=== PATIENT | male | born 1950 | race Caucasian/White ===

== ENCOUNTER → 2025-01-12 | Outpatient (CLI) | payer OTHER ==
[~2025-01-12] VITALS: Ht 152.4 cm; Wt 124.7 kg
[2025-01-12] MEDS: REGADENOSON 0.4 MG/5 ML SYRG IV ONE ×2 (08:54→09:07)
--- NOTE | 2025-01-13 12:59 | DVHSR ---
APPROVED REPORT Exam: Nuclear Stress Test Indication: Chest pain, SOB BMI: 0 Medical History Medical History: HTN, Diabetes, Hyperlipidemia Allergies: No known drug allergies Stress Test Details Stress Test: Pharmacologic stress testing performed using 0.4 mg of regadenoson per 5 mL given IV ov er 10 seconds. HR Resting HR: 52 bpmMax Heart Rate (APMHR): 146.928739 bpm Max HR Achieved: 73 bpmTarget HR (85% APMHR): 124.357419 bpm % of APMHR: 50.00 Recovery HR: 65 bpm BP Resting BP: 149/77 mmHg Recovery BP: 142/73 mmHg ECG Resting ECG: Sinus Bradycardia Clinical Reason for Termination: Completed protocol Nurse Comments Recieved pt. from [facility]. A/Ox4 on RA. Connected to traffic monitor specialist, VS stable. PIV flushes well. Reviewed POC. Pt. verbalized understanding of procedure including risks and side ef fects, agrees for stress testing. Lexiscan stress test performed per protocol. [employer] administered Cardiolite. Pt. tolerated well . Pt. stable, no change on exam. VS returned to baseline. Transferred to [facility] via wheelchair w/ te ch. Stress ECG Conclusion lvef 57% mild to moderate anterior wall ischemia anterolateral wall ischemia NM EXAM: Myocardial Perfusion REST/STRESS Imaging Protocol: Rest Tc-99m/Stress Tc-99m 1 day Resting Data Rest SPECT myocardial perfusion imaging was performed in supine position 60 minutes following the int ravenous injection of 12.0 mCi of Tc-99m Sestamibi. Time of rest injection: 07:45 Date: 01/12/2025 Time of rest imagin:45 Date: 01/12/2025 Administration Route: IV Administration Site: Right AC Pharmacologic Stress Pharmacologic stress test was performed by injecting Regadenoson 0.4 mg IV push followed by the intra venous injection of 33.1 mCi of Tc-99m Sestamibi. Time of stress injection: 09:05 Date: 01/12/2025 Time of stress imagin:05 Date: 01/12/2025 Administration Route: IV Administration Site: Right AC Gated Stress SPECT was performed 60 minutes after stress injection. The images were gated to evaluate regional wall motion and calculate left ventricular ejection fracti on. Stress only was performed in the Supine position. Nuclear Conclusion lvef 57% mild to moderate anterior wall ischemia anterolateral wall ischemia
== END | disposition home or self-care (01) ==
LOC: XYW 07:06
PROVIDERS: ATTEND Specialist
DX: I25.9 Chronic ischemic heart disease, unspecified (principal); R00.1 Bradycardia, unspecified; R06.02 Shortness of breath; R07.9 Chest pain, unspecified; I10 Essential (primary) hypertension; E11.9 Type 2 diabetes mellitus without complications; E78.5 Hyperlipidemia, unspecified
CPT/HCPCS: 78452; 93017; A9500; J2785

== ENCOUNTER 2025-03-18 06:44 | Day surgery (SDC) | payer OTHER ==
[~2025-03-18] VITALS: Ht 180.3 cm; Wt 122.5 kg
[2025-03-18] VITALS (7 sets, daily range): BP systolic 101–114; BP diastolic 47–64; PULSE 43–48; RESP 9–17; TEMP 97.5; O2SAT 93–100
[~2025-03-18 06:44] MED LIST: AMLO1TAB22 PO; ASPI-543 PO; ATOR40TA52 PO; COEN100C15 PO; EMPA1TAB3 PO; ISO60SRT PO; ISOS120T8 PO; LEVO175T4 PO; LOSA-535 PO; METO25TA5 PO; OMEGCAP2 OR; [UNRECOGNIZED DRUG - CODE] PO
[2025-03-18] MEDS: IODIXANOL 320MG/ML 100ML BTL IV ONE ×2 (07:29→09:08)
[2025-03-18] MEDS: MIDAZOLAM HCL 2MG/2ML 2ml VIAL (1mg/ml) ONE (07:54)
[2025-03-18] MEDS: ANGIOMAX 250 MG VIAL IV ONE ×2 (07:54→09:21)
[2025-03-18] MEDS: fentaNYL CITRATE 100 MCG/2 ML VL ONE (07:54)
[2025-03-18] MEDS: SODIUM CHL 0.9% 50 ML ONE ×2 (07:55→09:21)
[2025-03-18] MEDS: LIDOCAINE 2%HCL (LOCAL ANESTH.) INJ 10ml MDV ONE (07:55)
[2025-03-18] MEDS: CLOPIDOGREL BISULFATE 75 MG TAB ONE (10:00)
--- NOTE | 2025-03-18 10:14 | DVHOP2 ---
Operative Report Procedures performed: Left heart catheterization and bilateral coronary angiography Bypass angiography PCI (drug-eluting stent deployment) of ostium of SVG to obtuse marginal Fluoroscopy guided access (right femoral artery) Moderate sedation lasting more than 45 minutes Diagnosis: Multivessel baseline coronary artery disease Patent POWELL to diffusely diseased LAD Patent SVG to LPDA Patent SVG to obtuse marginal (ostium of the SVG had 90% disease, status post PCI/drug-eluting stent deployment) LVEF of 60% with increased EDP Cardiac suggestion for management: Dual antiplatelet therapy (loaded with aspirin/Plavix) for at least 1 year High potency statin, beta blockers, ANY inhibitors versus ARB Optimized medical therapy Lifestyle and risk factor modifications Findings: LVEF: 60% LVEDP: 22 mm Hg There was no transaortic valve pressure gradient Left main: Left main was coming off the left sinus of Valsalva. There was no angiographic evidence of disease in left main. LAD: LAD was coming off the left main. LAD was TECHNOLOGY ADMINISTRATOR at its proximal section. LAD was nourished via a patent POWELL. LAD itself was severely diffusely diseased. LCX: LCX was coming off the left main. It was the dominant vessel and provided LPDA. OM1 was a small-caliber vessel with proximal disease. OM2 was a medium- sized vessel and was TECHNOLOGY ADMINISTRATOR at its ostium (OM2 was nourished via patent SVG). OM3 was small caliber vessel. LPDA was TECHNOLOGY ADMINISTRATOR at its proximal section. LPDA itself was nourished via patent SVG. RCA: RCA was coming off the right sinus of Valsalva. It was a small-caliber/small-sized vessel. It was nondominant. It had sequential disease in its proximal section up to 80%. POWELL: POWELL was patent with no significant disease and was attached to LAD. SVG to obtuse marginal was patent. It had 90% ostial disease. Other portions of SVG had mild diffuse disease. PCI (drug-eluting stent deployment) of the ostium of the SVG was performed SVG to PDA was patent with up to moderate disease in its mid section. Presentation: Patient is a 74-year-old gentleman who presented to the office with occasional dyspnea on exertion and chest discomfort. Past medical history includes coronary artery disease and status post bypass surgery in 2007. Other comorbidities included diabetes mellitus, hypertension, hypothyroidism, prostate cancer and status post radiation therapy. His EKG shows right bundle branch block. Echocardiogram of July 2024 revealed ejection fraction of 60-65%, mild concentric left ventricular hypertrophy, mild biatrial enlargement, aortic root of 4 cm. Right ventricular systolic pressure was less than 35 mm Hg. Nuclear stress test of January 2025 was abnormal and the patient was sent for cardiac catheterization. Procedure: After obtaining informed consent, the patient was brought to the mine laborer. He was prepped and draped in sterile fashion. Right femoral artery was used for access site. 1 mg of Versed and 50 mcg of fentanyl were used for moderate sedation (lasting more than 45 minutes). Using micropuncture and with Seldinger technique and under ultrasound guidance, the right femoral artery was accessed. After angiographically proving a good access point, the micropuncture sheath was exchanged over a wire to a 6 Bangladeshi femoral sheath. A 6 Bangladeshi JL4 diagnostic catheter was used to perform left coronary angiography. A 6 Bangladeshi JR4 diagnostic catheter was used to perform right coronary angiography, SVG angiography to PDA and POWELL angiography. A 6 Bangladeshi LCB diagnostic catheter was used to perform SVG angiography to obtuse marginal. A 6 Bangladeshi multipurpose diagnostic catheter was also used to perform further imaging of SVG to PDA. Six Bangladeshi pigtail catheter was used to perform left heart catheterization. We did recognize the disease in the ostium of SVG to obtuse marginal and decision was made to proceed with intervention. Patient was started on Angiomax. A 6 Bangladeshi LCB guiding catheter was used to access the SVG. Run-through wire was used to cross the lesion. A 2 5 x 15 compliant balloon was used for predilatation. At this point we decided to proceed with deploying a stent. A 2.75 x 18 Brayden, drug-eluting stent, was deployed across the lesion in the ostium of SVG. Repeat angiography revealed a well deployed stent. Prior to intervention, BARTOLO flow into the SVG/obtuse marginal was BARTOLO 3 flow. Post intubation, BARTOLO flow into the SVG/obtuse marginal remained BARTOLO 3 flow. Post intervention, remaining disease in ostium of SVT was 0%. It is of note that we did special attention to the ostium of SVG to PDA. The images obtained by multipurpose catheter questioned ostium disease. The images obtained by JR4 diagnostic catheter did not reveal any kind of obstructive lesion in the ostium of the vessel. We assessed that the multipurpose catheter itself was the reason for questionable lesions. It was deemed that there was no significant lesion in the ostium of the SVG and no intervention was necessary at this point. There was no dissection/hematoma/perforation. Patient tolerated procedure with no complication. Right femoral artery access site was managed by deploying an Angio-Seal device. Fluoroscopy time: 21.1 minutes contrast: 265 mL of Jeanaipaque SUMA ARCE MD Mar 18, 2025 10:14
--- NOTE | 2025-03-21 09:44 | ECG ---
[facility] Test Date: 2025-03-18 Test Time: 07:39:23 Pat Name: TAMARA SIMPSON Department: Room: Gender: M Director: : 1950 Requested By: SUMA ARCE Order Number: [id number] Reading MD: Korey Chawla Measurements Intervals [place] Rate: 46 P: 60 MA: 196 QRS: -42 QRSD: 146 T: -18 QT: 484 QTc: 423 Interpretive Statements Marked sinus bradycardia Left axis deviation Right bundle branch block Electronically Signed On 03-21-2025 13:24:27 PDT by Korey Chawla Please click the below link to view image of tracing.
== END 2025-03-18 12:05 | disposition home or self-care (01) ==
LOC: CATH 06:44
PROVIDERS: ATTEND Internal Medicine Cardiovascular Disease
DX: R94.39 Abnormal result of other cardiovascular function study (principal); I25.810 Atherosclerosis of coronary artery bypass graft(s) without angina pectoris; I25.82 Chronic total occlusion of coronary artery; I45.10 Unspecified right bundle-branch block; I10 Essential (primary) hypertension; E11.9 Type 2 diabetes mellitus without complications; E03.9 Hypothyroidism, unspecified; Z79.82 Long term (current) use of aspirin; Z79.84 Long term (current) use of oral hypoglycemic drugs; Z79.890 Hormone replacement therapy; Z79.899 Other long term (current) drug therapy; Z85.46 Personal history of malignant neoplasm of prostate; Z92.3 Personal history of irradiation; Z95.5 Presence of coronary angioplasty implant and graft; Z95.1 Presence of aortocoronary bypass graft; Z98.890 Other specified postprocedural states
CPT/HCPCS: 93005; 93459; C1725; C1760; C1769; C1874; C1887; C1894; C9604; J0583; J1644; J2003; J2250; J3010; J7030; Q9967; 99152; 99153